=== PATIENT | female | born 1980 | race Two or more races ===

== ENCOUNTER 2018-10-18 11:45 | Emergency (ER) | payer MEDICAID ==
[~2018-10-18] VITALS: Ht 162.6 cm; Wt 91.6 kg
[2018-10-18 12:00] VITALS: BP 120/71
[2018-10-18] MEDS ORDERED: methylPREDNISolone SOD SUCC 125 MG/2 ML VL IM ONE (13:00)
[2018-10-18] MEDS ORDERED: KETOROLAC TROMETH 60MG/2ML VIAL IM ONE (13:00)
[2018-10-18] MEDS ORDERED: diphenhdrAMINE HCL 25 MG CAP PO ONE (13:00)
[2018-10-18 13:20] LABS: Urine Bacteria NONE SEEN /hpf (None Seen); Urine Blood Negative /uL (Negative); Urine WBC 1 /hpf (0 - 5)
== END 2018-10-18 14:36 | disposition home or self-care (01) ==
LOC: ER 11:45
DX: R51 Headache (principal); L30.9 Dermatitis, unspecified; M25.551 Pain in right hip; Z98.51 Tubal ligation status; Z32.02 Encounter for pregnancy test, result negative
CPT/HCPCS: 70450; 73502; 81001; 81025; 96372; 99284; J1885; J2930

== ENCOUNTER 2019-12-05 13:00 | Emergency (ER) | payer MEDICAID ==
[~2019-12-05] VITALS: Ht 165.1 cm; Wt 95.3 kg
[2019-12-05] MEDS ORDERED: SODIUM CHLORIDE 0.9% 1,000 ML IV ONE (13:15)
[2019-12-05 14:58] LABS: Basophils # (auto) 0 10 ^3/uL (0-0.2); Basophils % (auto) 0.5 % (0.0-2.0); Eosinophils # (auto) 0.1 10 ^3/uL (0-0.8); Eosinophils % (auto) 1.1 % (0.0-7.0); Hematocrit 40.7 % (36.0-46.0); Hemoglobin 14.1 g/dL (12.2-16.2); Lymphocytes # (auto) 2.6 10 ^3/uL (0.4-5.4); Lymphocytes % (auto) 28.6 % (10.0-50.0); Mean Corpuscular Hemoglobin 31.3 pg (28.0-32.0); Mean Corpuscular Hgb Conc. 34.7 g/dL (32.0-36.0); Mean Corpuscular Volume 90.3 fL (80.0-100.0); Monocytes # (auto) 0.5 10 ^3/uL (0-1.3); Monocytes % (auto) 5.9 % (0.0-12.0); Neutrophils # (auto) 5.8 10 ^3/uL (1.6-8.6); Neutrophils % (auto) 63.9 % (37.0-80.0); Platelet Count (auto) 259 10^3/uL (140-450); Red Blood Cells 4.51 10^6/uL (4.0-5.20); Red Cell Distribution Width 13.6 % (11.8-14.3); White Blood Cell 9.1 10^3/uL (4.4-10.8)
[2019-12-05 15:12] LABS: Albumin 3.8 g/dL (3.4-5.0); Anion Gap 6 (5-15); Blood Urea Nitrogen 6 mg/dL (7-18); Calcium 8.5 mg/dL (8.5-10.1); Carbon Dioxide 28 mmol/L (21-32); Chloride 105 mmol/L (98-107); Glucose 95 mg/dL (74-106); Sodium 139 mmol/L (136-145)
[2019-12-05 15:18] LABS: Alanine Aminotransferase 32 U/L (13-56); Alkaline Phosphatase 106 U/L (45-117); Aspartate Aminotransferase 19 U/L (15-37); Bilirubin, Total 0.3 mg/dL (0.2-1.0); GFR African American 126 mL/min; GFR Non-African American 104 mL/min; Total Protein 7.8 g/dL (6.4-8.2)
[2019-12-05 15:31] LABS: Urine Bacteria NONE SEEN /hpf (None Seen); Urine Blood 3+ /uL (Negative); Urine Specific Gravity 1.006 (1.001-1.035); Urine WBC 1 /hpf (0 - 5)
[2019-12-05 15:52] VITALS: BP 118/71
== END 2019-12-05 16:29 | disposition home or self-care (01) ==
LOC: ER 13:00
DX: R42 Dizziness and giddiness (principal); E86.0 Dehydration; H93.19 Tinnitus, unspecified ear
CPT/HCPCS: 36415; 70450; 71045; 80053; 81001; 84484; 85025; 93005; 99285; J7030

== ENCOUNTER 2020-08-16 14:34 | Emergency (ER) | payer MEDICAID ==
[~2020-08-16] VITALS: Ht 165.1 cm; Wt 95.3 kg
[2020-08-16 15:04] LABS: Basophils # (auto) 0.1 10 ^3/uL (0-0.2); Basophils % (auto) 0.7 % (0.0-2.0); Eosinophils # (auto) 0.1 10 ^3/uL (0-0.8); Eosinophils % (auto) 0.8 % (0.0-7.0); Hematocrit 43.3 % (36.0-46.0); Lymphocytes # (auto) 4.3 10 ^3/uL (0.4-5.4); Lymphocytes % (auto) 37.8 % (10.0-50.0); Mean Corpuscular Hemoglobin 31.3 pg (28.0-32.0); Mean Corpuscular Hgb Conc. 34.6 g/dL (32.0-36.0); Mean Corpuscular Volume 90.3 fL (80.0-100.0); Monocytes # (auto) 0.8 10 ^3/uL (0-1.3); Monocytes % (auto) 7.2 % (0.0-12.0); Neutrophils # (auto) 6.1 10 ^3/uL (1.6-8.6); Neutrophils % (auto) 53.5 % (37.0-80.0); Red Cell Distribution Width 13.3 % (11.8-14.3); White Blood Cell 11.3 10^3/uL (4.4-10.8)
[2020-08-16 15:20] LABS: Albumin 3.9 g/dL (3.4-5.0); Calcium 8.8 mg/dL (8.5-10.1); Potassium 3.9 mmol/L (3.5-5.1)
[2020-08-16 15:23] LABS: Bilirubin, Total 0.3 mg/dL (0.2-1.0); Total Protein 8.5 g/dL (6.4-8.2)
[2020-08-16 16:04] LABS: BUN/Creatinine Ratio 11.7
[2020-08-16 16:34] LABS: Urine Bacteria NONE SEEN /hpf (None Seen); Urine Blood Negative /uL (Negative); Urine Mucus FEW (None Seen); Urine Specific Gravity 1.024 (1.001-1.035); Urine WBC 1 /hpf (0 - 5)
[2020-08-16 18:05] VITALS: BP 119/51
== END 2020-08-16 18:09 | disposition home or self-care (01) ==
LOC: ER 14:34
DX: R10.31 Right lower quadrant pain (principal); R10.32 Left lower quadrant pain; R11.0 Nausea; R10.13 Epigastric pain
CPT/HCPCS: 36415; 74176; 80053; 81001; 81025; 82150; 83690; 85025; 85049

== ENCOUNTER 2020-11-25 20:54 | Emergency (ER) | payer MEDICAID ==
[~2020-11-25] VITALS: Ht 165.1 cm; Wt 97.5 kg
[2020-11-26 02:07] VITALS: BP 112/54
== END 2020-11-26 02:27 | disposition home or self-care (01) ==
LOC: ER 20:55
DX: J06.9 Acute upper respiratory infection, unspecified (principal); J02.9 Acute pharyngitis, unspecified; R09.81 Nasal congestion; R50.9 Fever, unspecified; R53.83 Other fatigue; R19.7 Diarrhea, unspecified; Z20.822 Contact with and (suspected) exposure to COVID-19; Z98.51 Tubal ligation status
CPT/HCPCS: 36415; 87426; 87804

== ENCOUNTER 2020-12-24 11:06 | Emergency (ER) | payer MEDICAID ==
[~2020-12-24] VITALS: Ht 165.1 cm; Wt 93.4 kg
[2020-12-24 12:10] VITALS: BP 115/44
[2020-12-24] MEDS ORDERED: cefTRIAXone SOD 1,000 MG VL IM ONE (14:00)
== END 2020-12-24 15:02 | disposition home or self-care (01) ==
LOC: ER 11:06
DX: J06.9 Acute upper respiratory infection, unspecified (principal); G44.209 Tension-type headache, unspecified, not intractable; Z20.822 Contact with and (suspected) exposure to COVID-19
CPT/HCPCS: 36415; 71046; 87426; 96372; 99284; C9803; J0696; U0003